=== PATIENT | female | born 1995 | race Caucasian/White ===

== ENCOUNTER 2018-10-22 14:58 | Emergency (ER) | payer BC, OTHER ==
[~2018-10-22] VITALS: Ht 172.7 cm; Wt 65.8 kg
[2018-10-22] MEDS ORDERED: QUET50TA PO (15:18)
[2018-10-22] MEDS ORDERED: NITR100C11 PO (15:18)
--- NOTE | 2018-10-22 15:59 | NUR ---
Female coil assembler accompanied female patient for (DR PERRY).
--- NOTE | 2018-10-22 16:02 | NUR ---
Patient discharged to home in stable conditon. Written and verbal after care instructions given. Patient verbalizes understanding of instructions.
[2018-10-22 16:04] VITALS: BP 109/61
== END 2018-10-22 16:04 | disposition home or self-care (01) ==
LOC: ER 14:58
DX: T83.32XA Displacement of intrauterine contraceptive device, initial encounter (principal); Z79.899 Other long term (current) drug therapy
CPT/HCPCS: A4663